=== PATIENT | male | born 1945 | race Hispanic/Latino ===

== ENCOUNTER 2016-08-29 08:15 | Emergency (ER) | payer OTHER ==
[2016-08-29 08:17] VITALS: BMI 31.3
[2016-08-29 08:19] VITALS: BP 133/79; PULSE 61; RESP 18; TEMP 97.8; O2SAT 98
[2016-08-29] MEDS ORDERED: Naproxen 500 MG TAB PO STA (08:30)
[2016-08-29] MEDS ORDERED: Naproxen 500 MG TAB PO ONE (08:30)
--- NOTE | 2016-08-29 08:33 | ED PDOC ---
HPI: Back Time Seen by Provider: 08/29/16 08:24 Chief Complaint (Provider): back pain History Per: Patient History/Exam Limitations: no limitations Onset/Duration Of Symptoms: Days (x 1 week) Current Symptoms Are (Timing): Still Present Additional Complaint(s): Isaac Chiang is a 71 year old male, with a previous medical history od hypertension and hypercholesterolemia, who presents to the ED with complaints of right sided lower back pain associated with tingling to the right lateral thigh progressively worsening for the past week. Patient denies any weakness, urinary symptoms or trauma. PMD: none provided Past Medical History Reviewed: Historical Data, Nursing Documentation, Vital Signs Vital Signs: Last Vital Signs Temp 97.8 F 08/29/16 08:17 Pulse 61 08/29/16 08:17 Resp 18 08/29/16 08:17 BP 133/79 08/29/16 08:17 Pulse Ox 98 08/29/16 08:17 - Medical History PMH: HTN, Hypercholesterolemia - Surgical History Surgical History: No Surg Hx - Family History Family History: States: Unknown Family Hx - Home Medications Home Medications: Ambulatory Orders Medication Instructions Recorded Cyclobenzaprine [Cyclobenzaprine 10 mg PO TID #10 tab 08/29/16 HCl] Naproxen [Naprosyn] 500 mg PO Q12H #20 tab 08/29/16 - Allergies Allergies/Adverse Reactions: Allergies Allergy/AdvReac Type Severity Reaction Status Date / Time No Known Allergies Allergy Verified 08/29/16 08:40 Review of Systems ROS Statement: Except As Marked, All Systems Reviewed And Found Negative Genitourinary Male: Negative for: Dysuria, Frequency, Incontinence, Hematuria, Penile Discharge, Scrotal Pain Musculoskeletal: Positive for: Back Pain (right lower) Neurological: Positive for: Other (tingling to right lateral thigh). Negative for: Weakness, Numbness Physical Exam - Reviewed Nursing Documentation Reviewed: Yes Vital Signs Reviewed: Yes - Physical Exam Appears: Positive for: Well, Non-toxic, No Acute Distress Back: Positive for: Other (right sacral tenderness). Negative for: L CVA Tenderness, R CVA Tenderness, Vertebral Tenderness Neurologic/Psych: Positive for: Alert, Oriented. Negative for: Motor/Sensory Deficits - ECG O2 Sat by Pulse Oximetry: 98 (RA) Pulse Ox Interpretation: Normal Medical Decision Making Medical Decision Making: Initial Impression: Back Pain Initial Plan: * naproxen * x-ray lumbar spine * reevaluation Scribe Attestation: Documented by Marcela Child, acting as a scribe for Lionel Danielle MD. Provider Scribe Attestation: All medical record entries made by the Scribe were at my direction and personally dictated by me. I have reviewed the chart and agree that the record accurately reflects my personal performance of the history, physical exam, medical decision making, and the department course for this patient. I have also personally directed, reviewed, and agree with the discharge instructions and disposition. Disposition - Clinical Impression Clinical Impression: Acute back pain, Radiculopathy of lumbosacral region - Patient ED Disposition Is Patient to be Admitted: No Counseled Patient/Family Regarding: Studies Performed, Diagnosis, Need For Followup, Rx Given - Disposition Referrals: Loni Conklin MD [Staff Provider] - Disposition: Routine/Home Disposition Time: 09:20 Condition: FAIR Prescriptions: Cyclobenzaprine [Cyclobenzaprine HCl] 10 mg PO TID #10 tab Naproxen [Naprosyn] 500 mg PO Q12H #20 tab Instructions: Lumbar Radiculopathy (ED)
--- NOTE | 2016-08-29 11:15 | RAD ---
PROCEDURE: Radiographs of the Lumbar Spine. HISTORY: trauma r/o fx COMPARISON: No prior. FINDINGS: BONES: Normal alignment. No listhesis. No fracture. DISC SPACES: Disc space narrowing at L4-5. OTHER FINDINGS: None. IMPRESSION: No fracture.
== END 2016-08-29 09:30 | disposition home or self-care (01) ==
LOC: H.ER 08:15
DX: M54.17 Radiculopathy, lumbosacral region (principal); E78.00 Pure hypercholesterolemia, unspecified; I10 Essential (primary) hypertension